=== PATIENT | male | born 1980 | race Hispanic/Latino ===

== ENCOUNTER 2025-08-31 20:40 | Emergency (ER) | payer BC, OTHER ==
--- OUTSIDE RECORDS SUMMARY | 2025-08-31 20:46 | XMS REPORT | Continuity of Care Document ---
Author Name Unknown Address [address] [facility] [address] [place] [address] [facility] Address [address] [facility] [place] [address] Care Team Providers Care Front Window Cashier Name Role Phone PCP, PATIENT DOES NOT HAVE A Primary Care Physic elodia Unavailable JOSEPHINE CONNER Attending Clinician Unavailable Josephine Conner NP Attending Clinician Payers Payer Name Policy Type Policy Number Effective Date Expirati on Date Source CIGNA II [id number] 2022 00:00:00 Allergies, Adverse Reactions, Alerts Allergy Name Allergy Type Status Severity Reaction(s) Onset Date Inactive Date Treating Clinician Comments Source NO KNOWN ALLERGIE S Drug Class Active [facility] Social History Social Habit Start Date Stop Date Quantity Comments Source Sexual orientation U [facility] Sex assigned at 1980 00:00:00 1980 00:00:00 [facility] Smoking Status Start Date Stop Date Source Tobacco smoking consumption unknown [facility] Medications Ordered Medication Name Filled Medication Name Start Date Stop Date Current Medication? Ordering Clinician Indication Dosage Frequency Signature (SIG) Comments Components Source lisinopril 20 mg-hydrochl orothiazide 12.5 mg tablet 5-0 8-06 00:00: 00 Yes mg Reid F Devendra lisinopril 20 mg-hydrochl orothiazide 12.5 mg tablet 5-0 7-07 00:00: 00 Yes mg Reid F Devendra lisinopril 20 mg-hydrochl orothiazide 12.5 mg tablet 5-0 6-07 00:00: 00 Yes mg Reid F Devendra lisinopril 20 mg-hydrochl orothiazide 12.5 mg tablet 2024-0 5-13 00:00: 00 Yes mg Reid Ramsay lisinopril 20 mg-hydrochl orothiazide 12.5 mg tablet 4-09 00:00: 00 Yes mg Reid Ramsay lisinopril 20 mg-hydrochl orothiazide 12.5 mg tablet 2-10 00:00: 00 Yes mg Reid Ramsay albuterol sulfate HFA 90 mcg/actuati on aerosol inhaler 2023-11- 00:00: 00 Yes 12mcg/a ctuatio n Reid Ramsay prednisone 50 mg tablet 2023-11 00:00: 00 Yes 1mg Reid Ramsay doxycycline monohydrate 100 mg capsule 2023-11 00:00: 00 Yes 1mg Reid Ramsay promethazin e-DM 6.25 mg-15 mg/5 mL oral syrup 2023-11 00:00: 00 Yes 5mg/5 mL Reid Ramsay mupirocin 2 % ointment 2023-11- 00:00: 00 Yes [id number] Apply to area(s) 3 (three) times daily as needed for Other (pustular lesion). [facility] cephALEXin 500 mg tablet 2023-11-16 00:00: 00 11-16 05:59 :00 No [id number] 500mg Take 1 tablet by mouth 4 (four) times daily for 7 days. [facility] lisinopril 20 mg-hydrochl orothiazide 12.5 mg tablet 2023-11 1-19 00:00: 00 Yes mg Reid Ramsay lisinopril 20 mg-hydrochl orothiazide 12.5 mg tablet 2023-11 0-16 00:00: 00 Yes mg Reid Ramsay lisinopril 20 mg-hydrochl orothiazide 12.5 mg tablet - 00:00: 00 Yes mg Reid Ramsay lisinopril 20 mg-hydrochl orothiazide 12.5 mg tablet - 00:00: 00 Yes mg Reid Ramsay ergocalcife rol (vitamin D2) 1,250 mcg (50,000 unit) capsule - 00:00: 00 Yes (50,000 unit) Reid Ramsay lisinopril 20 mg-hydrochl orothiazide 12.5 mg tablet 6 00:00: 00 Yes 1mg Reid Ramsay lisinopril 20 mg-hydrochl orothiazide 12.5 mg tablet 03-18 00:00: 00 Yes 1mg Reid Ramsay prednisone 20 mg tablet 03-13 00:00: 00 Yes 1mg Reid Ramsay clarithromy mariana 500 mg tablet 03-13 00:00: 00 Yes 1mg Reid Ramsay Tessalon Perles 100 mg capsule 03-13 00:00: 00 Yes 1mg Reid Ramsay lisinopril 20 mg tablet 12-27 00:00: 00 Yes 1mg Reid Ramsay lisinopril 20 mg-hydrochl orothiazide 12.5 mg tablet 12-27 00:00: 00 Yes 1mg Reid Ramsay Vital Signs Vital Name Observation Time Observation Value Comments S ource Systolic blood pressure 2024-11-08 16:00:00 142 mm[Hg] [place] [facility] Diastolic blood pressure 2024-11-08 16:00:00 98 mm[Hg] [place] [facility] Heart rate 2024-11-08 16:00:00 127 /min [facility] Body temperature 2024-11-08 16:00:00 37.06 Nurys [facility] Oxygen saturation in Arterial blood by Pulse oximetry 2024-11-08 16:00:00 96 /min [facility] Respiratory rate 2024-11-08 14:54:00 18 /min [facility] Body height 2024-11-08 14:54:00 182.9 cm [facility] Body weight 2024-11-08 14:54:00 117.935 kg [facility] BMI 2024-11-08 14:54:00 35.26 kg/m2 [facility] BP Systolic 2025-07-01 09:32:00 132 mm[Hg] Harsh Ramsay BP Diastolic 2025-07-01 09:32:00 83 mm[Hg] Mike Ramsay Weight Measured 2025-07-01 09:32:00 278.00 pounds Reid F Devendra Height Measured 2025-07-01 09:32:00 72.00 inches Reid F Devendra Body Temperature 2025-07-01 09:32:00 98.20 degrees Reid F Devendra Heart Rate 2025-07-01 09:32:00 100.00 /min Step hen F Devendra Respiratory Rate 2025-07-01 09:32:00 18.00 /min Reid F Devendra Heart Rate 2025-03-14 10:32:00 85.00 /min Alejandrina en F Devendra Respiratory Rate 2025-03-14 10:32:00 16.00 /min Reid F Devendra BP Systolic 2025-03-14 10:32:00 143 mm[Hg] Step hen F Devendra BP Diastolic 2025-03-14 10:32:00 104 mm[Hg] Mike phen F Devendra Weight Measured 2025-03-14 10:32:00 272.00 pounds Reid F Devendra Height Measured 2025-03-14 10:32:00 72.00 inches Reid F Devendra Body Temperature 2025-03-14 10:32:00 98.10 degrees Reid F Devendra BP Systolic 2025-03-14 10:15:00 143 mm[Hg] Step hen F Devendra BP Diastolic 2025-03-14 10:15:00 104 mm[Hg] Mike phen F Devendra Weight Measured 2025-03-14 10:15:00 272.00 pounds Reid F Devendra Height Measured 2025-03-14 10:15:00 72.00 inches Reid F Devendra Body Temperature 2025-03-14 10:15:00 98.10 degrees Reid F Devendra Heart Rate 2025-03-14 10:15:00 85.00 /min Alejandrina en F Devendra Respiratory Rate 2025-03-14 10:15:00 16.00 /min Reid F Devendra BP Systolic 2024-11-19 15:01:00 129 mm[Hg] Step hen F Devendra BP Diastolic 2024-11-19 15:01:00 85 mm[Hg] Mike phen F Devendra Weight Measured 2024-11-19 15:01:00 257.40 pounds Reid F Devendra Height Measured 2024-11-19 15:01:00 72.00 inches Reid F Devendra Body Temperature 2024-11-19 15:01:00 98.80 degrees Reid F Devendra Heart Rate 2024-11-19 15:01:00 120.00 /min Step hen F Devendra Respiratory Rate 2024-11-19 15:01:00 16.00 /min Reid F Devendra BP Systolic 2024-10-15 08:38:00 148 mm[Hg] Step hen F Devendra BP Diastolic 2024-10-15 08:38:00 114 mm[Hg] Mike phen F Devendra Weight Measured 2024-10-15 08:38:00 263.80 pounds Reid F Devendra Height Measured 2024-10-15 08:38:00 72.00 inches Reid F Devendra Body Temperature 2024-10-15 08:38:00 98.90 degrees Reid F Devendra Heart Rate 2024-10-15 08:38:00 95.00 /min Alejandrina en F Devendra Respiratory Rate 2024-10-15 08:38:00 16.00 /min Reid F Devendra Respiratory Rate 2024-04-15 11:03:00 Reid F Devendra BP Systolic 2024-04-15 11:03:00 128 mm[Hg] Step hen F Devendra BP Diastolic 2024-04-15 11:03:00 89 mm[Hg] Mike phen F Devendra Weight Measured 2024-04-15 11:03:00 278.60 pounds Reid F Devendra Height Measured 2024-04-15 11:03:00 72.00 inches Reid F Devendra Body Temperature 2024-04-15 11:03:00 97.20 degrees Reid F Devendra Heart Rate 2024-04-15 11:03:00 99.00 /min Alejandrina en F Devendra BP Systolic 2018-03-13 15:29:00 129 mm[Hg] Step hen F Devendra BP Diastolic 2018-03-13 15:29:00 92 mm[Hg] Mike phen F Devendra Weight Measured 2018-03-13 15:29:00 259.40 pounds Reid F Devendra Height Measured 2018-03-13 15:29:00 72.00 inches Reid F Devendra Body Temperature 2018-03-13 15:29:00 98.50 degrees Reid F Devendra Heart Rate 2018-03-13 15:29:00 114.00 /min Step hen F Devendra Respiratory Rate 2018-03-13 15:29:00 16.00 /min Reid Ramsay BP Systolic 2017-12-27 13:42:00 147 mm[Hg] Harsh Ramsay BP Diastolic 2017-12-27 13:42:00 98 mm[Hg] Mike Ramsya Weight Measured 2017-12-27 13:42:00 261.00 pounds Reid Ramsay Height Measured 2017-12-27 13:42:00 72.00 inches Reid Ramsay Body Temperature 2017-12-27 13:42:00 97.90 degrees Reid Ramsay Heart Rate 2017-12-27 13:42:00 105.00 /min Harsh Rmasay Respiratory Rate 2017-12-27 13:42:00 18.00 /min Reid Ramsay Procedures Procedure Date / Time Performed Performing Clinicia n Source INFLUENZA A/B RSV COVID NAAT 2024-11-08 15:27:00 Josephine Conner [facility] Encounters Start Date/Time End Date/Time Encounter Type Admission Type Attending [facility] Care Department Encounter ID Source 2025-08-30 15:56:28 2025-08-30 15:56:[address] [facility] [id number] Reid Ramsay 2025-07-01 09:39:42 2025-07-01 09:39:[address] [facility] [id number] Reid Ramsay 2025-07-01 00:00:00 2025-07-01 00:00:00 Outpatient Visit SFA [id number] Reid Ramsay 2025-03-14 10:10:25 2025-03-14 10:10:[address] [facility] [id number] Reid Ramsay 2025-03-14 00:00:00 2025-03-14 00:00:00 Outpatient Visit SFA [id number] Reid Ramsay 2024-11-19 14:51:33 2024-11-19 14:51:[address] [facility] [id number] Reid Ramsay 2024-11-19 00:00:00 2024-11-19 00:00:00 Outpatient Visit SFA [id number] Reid Ramsay 2024-11-08 08:57:00 2024-11-08 10:48:00 Emergency X [facility] ERT [id number] [facility] 2024-11-08 08:57:00 2024-11-08 10:48:00 Emergency Josephine Conner [facility] [id number] [facility] 2024-10-15 08:22:45 2024-10-15 08:22:[address] [facility] [id number] Reid Ramsay 2024-10-15 00:00:00 2024-10-15 00:00:[address] [facility] [id number] Reid Ramsay 2024-06-19 09:16:11 2024-06-19 09:16:11 Outpatient [facility] [id number] Reid Ramsay 2024-06-19 00:00:00 2024-06-19 00:00:[address] [facility] [id number] Reid Ramsay 2024-04-15 10:57:00 2024-04-15 10:57:[address] [facility] [id number] Reid Ramsay 2024-04-15 00:00:00 2024-04-15 00:00:[address] [facility] [id number] Reid Ramsay Results Test Description Test Time Test Comments Results Result Co mments Source Reid RamsayCOMPREHENSIVE METABOLIC [id number] 00:00:00* Test Item Value Reference Range Interpretation Comme nts GLUCOSE (test code = 2345-7) 90 mg/dL UREA NITROGEN (BUN) (test code = 3094-0) 17 mg/dL CREATININE (test code = 2160-0) 0.80 mg/dL EGFR (test code = 62442-9) 111 mL/min/1.73m2 BUN/CREATININE RATIO (test code = 3097-3) SEE NOTE: (calc) SODIUM (test code = 2951-2) 137 mmol/L POTASSIUM (test code = 2823-3) 4.2 mmol/L CHLORIDE (test code = 2075-0) 101 mmol/L CARBON DIOXIDE (test code = 2027-9) 28 mmol/L CALCIUM (test code = 67273-3) 9.8 mg/dL PROTEIN, TOTAL (test code = 2885-2) 8.0 g/dL ALBUMIN (test code = 1751-7) 4.6 g/dL GLOBULIN (test code = 49228-2) 3.4 g/dL(calc) ALBUMIN/GLOBULIN RATIO (test code = 1759-0) 1.4 (calc) BILIRUBIN, TOTAL (test code = 1975-2) 0.6 mg/dL ALKALINE PHOSPHATASE (test code = 6768-6) 109 U/L AST (test code = 1920-8) 23 U/L ALT (test code = 1742-6) 51 U/L Reid RamsayHEMOGLOBIN [id number] 00:00:00* Test Item Value Reference Range Interpretation Comme nts HEMOGLOBIN A1c (test code = 4548-4) 5.7 % Reid RamsayLIPID [id number] 00:00:00* Test Item Value Reference Range Interpretation Comme nts CHOLESTEROL, TOTAL (test cod e = 2093-3) 179 mg/dL HDL CHOLESTEROL (test code = 2085-9) 44 mg/dL TRIGLYCERIDES (test code = 2571-8) 159 mg/dL LDL-CHOLESTEROL (test code = 36657-7) 108 mg/dL(calc) CHOL/HDLC RATIO (test code = 9830-1) 4.1 (calc) NON HDL CHOLESTEROL (test code = 50618-7) 135 mg/dL(calc) Reid RamsayCHLAMYDIA/N. GONORRHOEAE RNA, [id number] 00:00:00* Test Item Value Reference Range Interpretation Comme nts CHLAMYDIA TRACHOMATIS RNA, T MA, UROGENITAL (test code = 82374-0) NOT DETECTED NEISSERIA GONORRHOEAE RNA, T MA, UROGENITAL (test code = 97517-4) NOT DETECTED Reid RamsayHEPATITIS PANEL, [id number] 00:00:00* Test Item Value Reference Range Interpretation Comme rommel HEPATITIS A AB, TOTAL (test code = 84473-2) REACTIVE HEPATITIS B SURFACE ANTIBODY QL (test code = 59506-0) NON-REACTIVE HEPATITIS B SURFACE ANTIGEN (test code = 5196-1) NON-REACTIVE CONFIRMATION (test code = 7905-3) DNR HEPATITIS B CORE AB TOTAL (t est code = 24497-5) NON-REACTIVE HEPATITIS C ANTIBODY (test c ode = 28109-5) NON-REACTIVE Ried RamsayRPR (MONITOR) W/REFL [id number] 00:00:00* Test Item Value Reference Range Interpretation Comme nts RPR (MONITOR) W/REFL TITER ( test code = 86984-0) NON-REACTIVE Reid RamsayPSA, [id number] 00:00:00* Test Item Value Reference Range Interpretation Comme rommel PSA, TOTAL (test code = 2857-1) 0.59 ng/mL Reid RamsayHIV 1/2 ANTIGEN/ANTIBODY,FOURTH GENERATION [id number] 00:00:00* Test Item Value Reference Range Interpretation Comme rommel HIV AG/AB, 4TH GEN (test cod e = 53228-5) NON-REACTIVE Reid RamsayCOMPREHENSIVE METABOLIC [id number] 00:00:00* Test Item Value Reference Range Interpretation Comme nts GLUCOSE (test code = 2345-7) 90 mg/dL UREA NITROGEN (BUN) (test code = 3094-0) 17 mg/dL CREATININE (test code = 2160-0) 0.80 mg/dL EGFR (test code = 64776-4) 111 mL/min/1.73m2 BUN/CREATININE RATIO (test code = 3097-3) SEE NOTE: (calc) SODIUM (test code = 2951-2) 137 mmol/L POTASSIUM (test code = 2823-3) 4.2 mmol/L CHLORIDE (test code = 2075-0) 101 mmol/L CARBON DIOXIDE (test code = 2027-9) 28 mmol/L CALCIUM (test code = 82497-7) 9.8 mg/dL PROTEIN, TOTAL (test code = 2885-2) 8.0 g/dL ALBUMIN (test code = 1751-7) 4.6 g/dL GLOBULIN (test code = 61704-8) 3.4 g/dL(calc) ALBUMIN/GLOBULIN RATIO (test code = 1759-0) 1.4 (calc) BILIRUBIN, TOTAL (test code = 1975-2) 0.6 mg/dL ALKALINE PHOSPHATASE (test code = 6768-6) 109 U/L AST (test code = 1920-8) 23 U/L ALT (test code = 1742-6) 51 U/L Reid Loja Teressa w/ABR [id number] 00:00:00* Test Item Value Reference Range Interpretation Comme nts ACINETOBACTER BAUMANNII (alice t code = 01532-3) Negative KLEBSIELLA AEROGENES (test c ode = 41420-5) Negative CITROBACTER FREUNDII (test c ode = 12732-2) Negative ENTEROBACTER CLOACAE (test c ode = 64134GFD) Negative ESCHERICHIA COLI (test code = 83395-2) Negative KLEBSIELLA OXYTOCA (test cod e = 66432-7) Negative KLEBSIELLA PNEUMONIAE (test code = 12644-3) Negative MORGANELLA MORGANII (test co de = 46046-3) Negative MYCOPLASMA HOMINIS (test cod e = 65057-3) Negative PROTEUS MIRABILIS (test code = 35977-9) Negative PROTEUS VULGARIS (test code = 870758-0) Negative PROVIDENCIA STUARTII (test c ode = 29932-6) Negative PSEUDOMONAS AERUGINOSA (test code = 36783-1) Negative SERRATIA MARCESCENS (test co de = 24124-0) Negative UREAPLASMA UREALYTICUM (test code = 02676-0) Negative ENTEROCOCCUS FAECALIS (test code = 54597-8) Negative ENTEROCOCCUS FAECIUM (test c ode = 51174-2) Negative STAPHYLOCOCCUS AUREUS (test code = 97535-8) Negative STAPHYLOCOCCUS SAPROPHYTICUS (test code = 25732-9) Negative STREPTOCOCCUS AGALACTIAE (te st code = 57679-6) Negative ELIZABETH ALBICANS (test code = 99912-0) Negative ELIZABETH GLABRATA (test code = no code1) Negative ELIZABETH PARAPSILOSIS (test c ode = no code3) Negative ELIZABETH TROPICALIS (test cod e = No code) Negative Reid RamsayHEMOGLOBIN [id number] 00:00:00* Test Item Value Reference Range Interpretation Comme rommel HEMOGLOBIN A1c (test code = 4548-4) 5.7 % Reid RamsayLIPID [id number] 00:00:00* Test Item Value Reference Range Interpretation Comme rommel CHOLESTEROL, TOTAL (test cod e = 2093-3) 179 mg/dL HDL CHOLESTEROL (test code = 2085-9) 44 mg/dL TRIGLYCERIDES (test code = 2571-8) 159 mg/dL LDL-CHOLESTEROL (test code = 93364-5) 108 mg/dL(calc) CHOL/HDLC RATIO (test code = 9830-1) 4.1 (calc) NON HDL CHOLESTEROL (test code = 20443-3) 135 mg/dL(calc) Reid RamsayCHLAMYDIA/N. GONORRHOEAE RNA, [id number] 00:00:00* Test Item Value Reference Range Interpretation Comme rommel CHLAMYDIA TRACHOMATIS RNA, T MA, UROGENITAL (test code = 95489-3) NOT DETECTED NEISSERIA GONORRHOEAE RNA, T MA, UROGENITAL (test code = 40096-9) NOT DETECTED Reid RamsayHEPATITIS PANEL, [id number] 00:00:00* Test Item Value Reference Range Interpretation Comme rommel HEPATITIS A AB, TOTAL (test code = 74186-3) REACTIVE HEPATITIS B SURFACE ANTIBODY QL (test code = 16163-6) NON-REACTIVE HEPATITIS B SURFACE ANTIGEN (test code = 5196-1) NON-REACTIVE CONFIRMATION (test code = 7905-3) DNR HEPATITIS B CORE AB TOTAL (t est code = 12369-5) NON-REACTIVE HEPATITIS C ANTIBODY (test c ode = 73447-1) NON-REACTIVE Reid RamsayRPR (MONITOR) W/REFL [id number] 00:00:00* Test Item Value Reference Range Interpretation Comme nts RPR (MONITOR) W/REFL TITER ( test code = 88263-0) NON-REACTIVE Reid RamsayPSA, [id number] 00:00:00* Test Item Value Reference Range Interpretation Comme nts PSA, TOTAL (test code = 2857-1) 0.59 ng/mL Reid RamsayHIV 1/2 ANTIGEN/ANTIBODY,FOURTH GENERATION [id number] 00:00:00* Test Item Value Reference Range Interpretation Comme nts HIV AG/AB, 4TH GEN (test cod e = 34355-2) NON-REACTIVE Reid RamsayCOMPREHENSIVE METABOLIC [id number] 04:47:02* Test Item Value Reference Range Interpretation Comme nts GLUCOSE (test code = 7) 88 MG/DL 70-99 BUN (test code = 2207) 15 MG/DL 6-20 CREATININE (test code = 221) 0.81 MG/DL 0.80-1.40 eGFR (2020 CKD-EPI) (test code = 57480) 110 ML/MIN/1.73 >60 CALC BUN/CREAT (test code = 2235) 19 RATIO 6-28 SODIUM (test code = 223) 139 MEQ/L 133-146 POTASSIUM (test code = 2228) 3.8 MEQ/L 3.5-5.4 CHLORIDE (test code = 2215) 101 MEQ/L 95-107 CARBON DIOXIDE (test code = 2206) 24 MEQ/L 19-31 CALCIUM (test code = 2209) 9.9 MG/DL 8.5-10.5 PROTEIN, TOTAL (test code = 2229) 7.9 G/DL 6.1-8.3 ALBUMIN (test code = 2201) 4.8 G/DL 3.5-5.2 CALC GLOBULIN (test code = 2240) 3.1 G/DL 1.9-3.7 CALC A/G RATIO (test code = 2234) 1.5 RATIO 1.0-2.6 BILIRUBIN, TOTAL (test code = 220) 0.8 MG/DL <=1.2 ALKALINE PHOSPHATASE (test code = 2204) 123 U/L 40-118 H AST (test code = 2218) 35 U/L 9-50 ALT (test code = 2219) 67 U/L 5-50 H LIPID [id number] 04:47:02* Test Item Value Reference Range Interpretation Comme nts CHOLESTEROL (test code = 2210) 163 MG/DL <200 TRIGLYCERIDES (test code = 2232) 108 MG/DL <150 HDL CHOLESTEROL (test code = 2220) 37 MG/DL >39 L CALC LDL CHOL (test code = 2237) 106 MG/DL <100 H NOTE: CALCULATED LDL IS BASED ON LUCY-CHAN METHOD WHICHINCLUDES ADJUSTABLE TRIGLYCERIDE:VLDL CHOLESTEROL RATIO.THIS FACTOR VARIES BY MEASURED TRIGLYCERIDE AND NON-HDLCHOLESTEROL CONCENTRATIONS WITH INCREASED CALCULATED LDL SEENIN HIGHER TRIGLYCERIDE OR LOWER NON-HDL SPECIMENS. FOR MOREINFORMATION, SEE CLIENT ANNOUNCEMENT AT [email or web address] RISK RATIO LDL/HDL (test code = 2238) 2.86 RATIO <3.55 [id number] 04:19:36* Test Item Value Reference Range Interpretation Comme nts TESTOSTERONE (test code = 2830) 430 NG/DL 300-890 PSA, [id number] 04:19:29* Test Item Value Reference Range Interpretation Comme nts PSA, TOTAL (test code = 2606) 0.61 NG/ML <=4.00 NOTE: Methodolog y is Farida Stacia Electrochemiluminescence Immunoassay traceable to WHO reference standard 96/760. FSH + LH [id number] 04:19:29* Test Item Value Reference Range Interpretation Comme nts FOLLICLE STIM HORMONE (test code = 2700) 3.8 IU/L 1.5-12.4 LUTEINIZING HORMONE (test code = 2776) 7.6 IU/L 1.2-8.6 UNLESS OTHERW ISE INDICATED, ALL TESTING PERFORMED AT [facility] [address] [place] [address] MOTORCYCLE RIDING INSTRUCTOR: VIANEY HERNANDEZ M.D. CLIA NUMBER [id number] [facility] [place]. [id number] HEMOGLOBIN [id number] 02:42:12* Test Item Value Reference Range Interpretation Comme nts HEMOGLOBIN A1c (test code = 84731) 5.5 % 4.2-5.6 COMPREHENSIVE METABOLIC [id number] 00:00:00* Test Item Value Reference Range Interpretation Comme nts GLUCOSE (test code = 2217) 88 MG/DL BUN (test code = 2208) 15 MG/DL CREATININE (test code = 2214) 0.81 MG/DL eGFR (2020 CKD-EPI) (test code = 15492) 110 ML/MIN/1.73 CALC BUN/CREAT (test code = 2235) 19 RATIO SODIUM (test code = 2231) 139 MEQ/L POTASSIUM (test code = 2228) 3.8 MEQ/L CHLORIDE (test code = 2215) 101 MEQ/L CARBON DIOXIDE (test code = 2206) 24 MEQ/L CALCIUM (test code = 2209) 9.9 MG/DL PROTEIN, TOTAL (test code = 2229) 7.9 G/DL ALBUMIN (test code = 2201) 4.8 G/DL CALC GLOBULIN (test code = 2240) 3.1 G/DL CALC A/G RATIO (test code = 2234) 1.5 RATIO BILIRUBIN, TOTAL (test code = 2207) 0.8 MG/DL ALKALINE PHOSPHATASE (test code = 2204) 123 U/L AST (test code = 2218) 35 U/L ALT (test code = 2219) 67 U/L Reid RamsayLIPID [id number] 00:00:00* Test Item Value Reference Range Interpretation Comme nts CHOLESTEROL (test code = 2210) 163 MG/DL TRIGLYCERIDES (test code = 2232) 108 MG/DL HDL CHOLESTEROL (test code = 2220) 37 MG/DL CALC LDL CHOL (test code = 2237) 106 MG/DL RISK RATIO LDL/HDL (test cod e = 2238) 2.86 RATIO Reid RamsayHEMOGLOBIN [id number] 00:00:00* Test Item Value Reference Range Interpretation Comme rommel HEMOGLOBIN A1c (test code = 80792) 5.5 % Reid [id number] 00:00:00* Test Item Value Reference Range Interpretation Comme nts TESTOSTERONE (test code = 2830) 430 NG/DL Reid RamsayPSA, [id number] 00:00:00* Test Item Value Reference Range Interpretation Comme nts PSA, TOTAL (test code = 2606) 0.61 NG/ML Reid RamsayFSH + LH [id number] 00:00:00* Test Item Value Reference Range Interpretation Comme nts FOLLICLE STIM HORMONE (test code = 7880) 3.8 IU/L LUTEINIZING HORMONE (test co de = 0090) 7.6 IU/L Reid RamsayCOMPREHENSIVE METABOLIC [id number] 00:00:00* Test Item Value Reference Range Interpretation Comme nts GLUCOSE (test code = 2217) 88 MG/DL BUN (test code = 2208) 15 MG/DL CREATININE (test code = 2214) 0.81 MG/DL eGFR (2020 CKD-EPI) (test code = 92540) 110 ML/MIN/1.73 CALC BUN/CREAT (test code = 2235) 19 RATIO SODIUM (test code = 2231) 139 MEQ/L POTASSIUM (test code = 2228) 3.8 MEQ/L CHLORIDE (test code = 2215) 101 MEQ/L CARBON DIOXIDE (test code = 2206) 24 MEQ/L CALCIUM (test code = 2209) 9.9 MG/DL PROTEIN, TOTAL (test code = 2229) 7.9 G/DL ALBUMIN (test code = 2201) 4.8 G/DL CALC GLOBULIN (test code = 2240) 3.1 G/DL CALC A/G RATIO (test code = 2234) 1.5 RATIO BILIRUBIN, TOTAL (test code = 2207) 0.8 MG/DL ALKALINE PHOSPHATASE (test code = 2204) 123 U/L AST (test code = 2218) 35 U/L ALT (test code = 2219) 67 U/L Reid RamsayLIPID [id number] 00:00:00* Test Item Value Reference Range Interpretation Comme nts CHOLESTEROL (test code = 2210) 163 MG/DL TRIGLYCERIDES (test code = 2232) 108 MG/DL HDL CHOLESTEROL (test code = 2220) 37 MG/DL CALC LDL CHOL (test code = 2237) 106 MG/DL RISK RATIO LDL/HDL (test cod e = 2238) 2.86 RATIO Reid RamsayHEMOGLOBIN [id number] 00:00:00* Test Item Value Reference Range Interpretation Comme nts HEMOGLOBIN A1c (test code = 66984) 5.5 % Reid [id number] 00:00:00* Test Item Value Reference Range Interpretation Comme nts TESTOSTERONE (test code = 2830) 430 NG/DL Reid RamsayPSA, [id number] 00:00:00* Test Item Value Reference Range Interpretation Comme nts PSA, TOTAL (test code = 2606) 0.61 NG/ML Reid RamsayFSH + LH [id number] 00:00:00* Test Item Value Reference Range Interpretation Comme nts FOLLICLE STIM HORMONE (test code = 2700) 3.8 IU/L LUTEINIZING HORMONE (test co de = 2776) 7.6 IU/L Reid RamsayCOMPREHENSIVE METABOLIC [id number] 00:00:00* Test Item Value Reference Range Interpretation Comme nts GLUCOSE (test code = 2217) 88 MG/DL BUN (test code = 2208) 15 MG/DL CREATININE (test code = 2214) 0.81 MG/DL eGFR (2020 CKD-EPI) (test code = 71957) 110 ML/MIN/1.73 CALC BUN/CREAT (test code = 2235) 19 RATIO SODIUM (test code = 2231) 139 MEQ/L POTASSIUM (test code = 2228) 3.8 MEQ/L CHLORIDE (test code = 2215) 101 MEQ/L CARBON DIOXIDE (test code = 2206) 24 MEQ/L CALCIUM (test code = 2209) 9.9 MG/DL PROTEIN, TOTAL (test code = 2229) 7.9 G/DL ALBUMIN (test code = 2201) 4.8 G/DL CALC GLOBULIN (test code = 2240) 3.1 G/DL CALC A/G RATIO (test code = 2234) 1.5 RATIO BILIRUBIN, TOTAL (test code = 2207) 0.8 MG/DL ALKALINE PHOSPHATASE (test code = 2204) 123 U/L AST (test code = 2218) 35 U/L ALT (test code = 2219) 67 U/L Reid RamsayLIPID [id number] 00:00:00* Test Item Value Reference Range Interpretation Comme nts CHOLESTEROL (test code = 2210) 163 MG/DL TRIGLYCERIDES (test code = 2232) 108 MG/DL HDL CHOLESTEROL (test code = 2220) 37 MG/DL CALC LDL CHOL (test code = 2237) 106 MG/DL RISK RATIO LDL/HDL (test cod e = 2238) 2.86 RATIO Reid RamsayHEMOGLOBIN [id number] 00:00:00* Test Item Value Reference Range Interpretation Comme [facility] HEMOGLOBIN A1c (test code = 59389) 5.5 % Reid [id number] 00:00:00* Test Item Value Reference Range Interpretation Comme nts TESTOSTERONE (test code = 2830) 430 NG/DL Reid RamsayPSA, [id number] 00:00:00* Test Item Value Reference Range Interpretation Comme nts PSA, TOTAL (test code = 2606) 0.61 NG/ML Reid RamsayFSH + LH [id number] 00:00:00* Test Item Value Reference Range Interpretation Comme nts FOLLICLE STIM HORMONE (test code = 2700) 3.8 IU/L LUTEINIZING HORMONE (test co de = 2776) 7.6 IU/L Reid RamsayCOMPREHENSIVE METABOLIC [id number] 00:00:00* Test Item Value Reference Range Interpretation Comme nts GLUCOSE (test code = 2217) 88 MG/DL BUN (test code = 2208) 15 MG/DL CREATININE (test code = 2214) 0.81 MG/DL eGFR (2020 CKD-EPI) (test code = 31131) 110 ML/MIN/1.73 CALC BUN/CREAT (test code = 2235) 19 RATIO SODIUM (test code = 2231) 139 MEQ/L POTASSIUM (test code = 2228) 3.8 MEQ/L CHLORIDE (test code = 2215) 101 MEQ/L CARBON DIOXIDE (test code = 2206) 24 MEQ/L CALCIUM (test code = 2209) 9.9 MG/DL PROTEIN, TOTAL (test code = 2229) 7.9 G/DL ALBUMIN (test code = 2201) 4.8 G/DL CALC GLOBULIN (test code = 2240) 3.1 G/DL CALC A/G RATIO (test code = 2234) 1.5 RATIO BILIRUBIN, TOTAL (test code = 2207) 0.8 MG/DL ALKALINE PHOSPHATASE (test code = 2204) 123 U/L AST (test code = 2218) 35 U/L ALT (test code = 2219) 67 U/L Reid RamsayLIPID [id number] 00:00:00* Test Item Value Reference Range Interpretation Comme nts CHOLESTEROL (test code = 2210) 163 MG/DL TRIGLYCERIDES (test code = 2232) 108 MG/DL HDL CHOLESTEROL (test code = 2220) 37 MG/DL CALC LDL CHOL (test code = 2237) 106 MG/DL RISK RATIO LDL/HDL (test cod e = 2238) 2.86 RATIO Reid RamsayHEMOGLOBIN [id number] 00:00:00* Test Item Value Reference Range Interpretation Comme nts HEMOGLOBIN A1c (test code = 55434) 5.5 % Reid [id number] 00:00:00* Test Item Value Reference Range Interpretation Comme nts TESTOSTERONE (test code = 2830) 430 NG/DL Reid RamsayPSA, [id number] 00:00:00* Test Item Value Reference Range Interpretation Comme rommel PSA, TOTAL (test code = 2606) 0.61 NG/ML Reid RamsayFSH + LH [id number] 00:00:00* Test Item Value Reference Range Interpretation Comme rommel FOLLICLE STIM HORMONE (test code = 2700) 3.8 IU/L LUTEINIZING HORMONE (test co de = 2776) 7.6 IU/L Reid RamsayHEMOGLOBIN [id number] 03:18:02* Test Item Value Reference Range Interpretation Comme rommel HEMOGLOBIN A1c (test code = 52741) 6.1 % 4.2-5.6 H [employer] GUIDELINES FOR HGB A1C: PREDIABETES/INCREASED RISK . . . . . . . 5.7-6.4% DIAGNOSIS OF DIABETES . . . . . . . . . >=6.5% WITH CONFIRMATION OR APPROPRIATE SYMPTOMS NOTE: ASSAY MAY BE AFFECTED BY HEMOGLOBINOPATHIES (SICKLE CELL ANEMIA, S-C DISEASE, OTHERS) OR ARTIFICIALLY LOWERED BY DECREASED RED CELL SURVIVAL (HEMOLYTIC ANEMIAS, BLOOD LOSS, ETC.). CONSIDER ALTERNATE TESTING OR LABORATORY CONSULTATION. COMPREHENSIVE METABOLIC [id number] 02:40:23* Test Item Value Reference Range Interpretation Comme nts GLUCOSE (test code = 2217) 101 MG/DL 70-99 H BUN (test code = 2208) 15 MG/DL 6-20 CREATININE (test code = 2214) 0.85 MG/DL 0.80-1.40 eGFR (2020 CKD-EPI) (test code = 79325) 109 ML/MIN/1.73 >60 CALC BUN/CREAT (test code = 2235) 18 RATIO 6-28 SODIUM (test code = 2231) 139 MEQ/L 133-146 POTASSIUM (test code = 2228) 4.0 MEQ/L 3.5-5.4 CHLORIDE (test code = 2215) 102 MEQ/L 95-107 CARBON DIOXIDE (test code = 6) 22 MEQ/L 19-31 CALCIUM (test code = 2208) 9.8 MG/DL 8.5-10.5 PROTEIN, TOTAL (test code = 2229) 7.7 G/DL 6.1-8.3 ALBUMIN (test code = 2201) 4.9 G/DL 3.5-5.2 CALC GLOBULIN (test code = 2240) 2.8 G/DL 1.9-3.7 CALC A/G RATIO (test code = 2234) 1.8 RATIO 1.0-2.6 BILIRUBIN, TOTAL (test code = 2206) 0.7 MG/DL <=1.2 ALKALINE PHOSPHATASE (test code = 2203) 115 U/L 40-119 AST (test code = 221) 48 U/L 9-50 ALT (test code = 221) 75 U/L 5-50 H LIPID [id number] 02:40:23* Test Item Value Reference Range Interpretation Comme nts CHOLESTEROL (test code = 2210) 180 MG/DL <200 TRIGLYCERIDES (test code = 2232) 157 MG/DL <150 H HDL CHOLESTEROL (test code = 2220) 40 MG/DL >39 CALC LDL CHOL (test code = 2236) 113 MG/DL <100 H NOTE: CALCULATED LDL IS BASED ON LUCY-CHAN METHOD WHICHINCLUDES ADJUSTABLE TRIGLYCERIDE:VLDL CHOLESTEROL RATIO.THIS FACTOR VARIES BY MEASURED TRIGLYCERIDE AND NON-HDLCHOLESTEROL CONCENTRATIONS WITH INCREASED CALCULATED LDL SEENIN HIGHER TRIGLYCERIDE OR LOWER NON-HDL SPECIMENS. FOR MOREINFORMATION, SEE CLIENT ANNOUNCEMENT AT [email or web address] RISK RATIO LDL/HDL (test code = 2238) 2.83 RATIO <3.55 UNLESS OTHERW ISE INDICATED, ALL TESTING PERFORMED AT [facility] [address] [place] [id number] [employer]OR[employer] RIDING INSTRUCTOR: VIANEY HERNANDEZ M.D. CLIA NUMBER [id number] [facility] [place]. [id number] HEMOGLOBIN [id number] 00:00:00* Test Item Value Reference Range Interpretation Comme nts HEMOGLOBIN A1c (test code = 53100) 6.1 % Reid aRmsayCOMPREHENSIVE METABOLIC [id number] 00:00:00* Test Item Value Reference Range Interpretation Comme nts GLUCOSE (test code = 2217) 101 MG/DL BUN (test code = 2208) 15 MG/DL CREATININE (test code = 2214) 0.85 MG/DL eGFR (2020 CKD-EPI) (test code = 37660) 109 ML/MIN/1.73 CALC BUN/CREAT (test code = 2235) 18 RATIO SODIUM (test code = 2231) 139 MEQ/L POTASSIUM (test code = 2228) 4.0 MEQ/L CHLORIDE (test code = 2215) 102 MEQ/L CARBON DIOXIDE (test code = 2206) 22 MEQ/L CALCIUM (test code = 2209) 9.8 MG/DL PROTEIN, TOTAL (test code = 2229) 7.7 G/DL ALBUMIN (test code = 2201) 4.9 G/DL CALC GLOBULIN (test code = 2240) 2.8 G/DL CALC A/G RATIO (test code = 2234) 1.8 RATIO BILIRUBIN, TOTAL (test code = 2207) 0.7 MG/DL ALKALINE PHOSPHATASE (test code = 2204) 115 U/L AST (test code = 2218) 48 U/L ALT (test code = 2219) 75 U/L Reid Loja AustinLIPID [id number] 00:00:00* Test Item Value Reference Range Interpretation Comme nts CHOLESTEROL (test code = 2210) 180 MG/DL TRIGLYCERIDES (test code = 2232) 157 MG/DL HDL CHOLESTEROL (test code = 2220) 40 MG/DL CALC LDL CHOL (test code = 2237) 113 MG/DL RISK RATIO LDL/HDL (test cod e = 2238) 2.83 RATIO Reid RamsayHEMOGLOBIN [id number] 00:00:00* Test Item Value Reference Range Interpretation Comme nts HEMOGLOBIN A1c (test code = 17387) 6.1 % Reid Loja DevendraCOMPREHENSIVE METABOLIC [id number] 00:00:00* Test Item Value Reference Range Interpretation Comme nts GLUCOSE (test code = 2217) 101 MG/DL BUN (test code = 2208) 15 MG/DL CREATININE (test code = 2214) 0.85 MG/DL eGFR (2020 CKD-EPI) (test code = 32177) 109 ML/MIN/1.73 CALC BUN/CREAT (test code = 2235) 18 RATIO SODIUM (test code = 2231) 139 MEQ/L POTASSIUM (test code = 2228) 4.0 MEQ/L CHLORIDE (test code = 2215) 102 MEQ/L CARBON DIOXIDE (test code = 2206) 22 MEQ/L CALCIUM (test code = 2209) 9.8 MG/DL PROTEIN, TOTAL (test code = 2229) 7.7 G/DL ALBUMIN (test code = 2201) 4.9 G/DL CALC GLOBULIN (test code = 2240) 2.8 G/DL CALC A/G RATIO (test code = 2234) 1.8 RATIO BILIRUBIN, TOTAL (test code = 2207) 0.7 MG/DL ALKALINE PHOSPHATASE (test code = 2204) 115 U/L AST (test code = 2218) 48 U/L ALT (test code = 2219) 75 U/L Reid RamsayLIPID [id number] 00:00:00* Test Item Value Reference Range Interpretation Comme nts CHOLESTEROL (test code = 2210) 180 MG/DL TRIGLYCERIDES (test code = 2232) 157 MG/DL HDL CHOLESTEROL (test code = 2220) 40 MG/DL CALC LDL CHOL (test code = 2237) 113 MG/DL RISK RATIO LDL/HDL (test cod e = 2238) 2.83 RATIO Reid RamsayHEMOGLOBIN [id number] 00:00:00* Test Item Value Reference Range Interpretation Comme nts HEMOGLOBIN A1c (test code = 33595) 6.1 % Reid RamsayCOMPREHENSIVE METABOLIC [id number] 00:00:00* Test Item Value Reference Range Interpretation Comme nts GLUCOSE (test code = 2217) 101 MG/DL BUN (test code = 2208) 15 MG/DL CREATININE (test code = 2214) 0.85 MG/DL eGFR (2020 CKD-EPI) (test code = 58373) 109 ML/MIN/1.73 CALC BUN/CREAT (test code = 2235) 18 RATIO SODIUM (test code = 2231) 139 MEQ/L POTASSIUM (test code = 2228) 4.0 MEQ/L CHLORIDE (test code = 2215) 102 MEQ/L CARBON DIOXIDE (test code = 2206) 22 MEQ/L CALCIUM (test code = 2209) 9.8 MG/DL PROTEIN, TOTAL (test code = 2229) 7.7 G/DL ALBUMIN (test code = 2201) 4.9 G/DL CALC GLOBULIN (test code = 2240) 2.8 G/DL CALC A/G RATIO (test code = 2234) 1.8 RATIO BILIRUBIN, TOTAL (test code = 2207) 0.7 MG/DL ALKALINE PHOSPHATASE (test code = 2204) 115 U/L AST (test code = 2218) 48 U/L ALT (test code = 2219) 75 U/L Reid RamsayLIPID [id number] 00:00:00* Test Item Value Reference Range Interpretation Comme nts CHOLESTEROL (test code = 2210) 180 MG/DL TRIGLYCERIDES (test code = 2232) 157 MG/DL HDL CHOLESTEROL (test code = 2220) 40 MG/DL CALC LDL CHOL (test code = 2237) 113 MG/DL RISK RATIO LDL/HDL (test cod e = 2238) 2.83 RATIO Reid RamsayHEMOGLOBIN [id number] 00:00:00* Test Item Value Reference Range Interpretation Comme rommel HEMOGLOBIN A1c (test code = 98078) 6.1 % Reid RamsayCOMPREHENSIVE METABOLIC [id number] 00:00:00* Test Item Value Reference Range Interpretation Comme nts GLUCOSE (test code = 2217) 101 MG/DL BUN (test code = 2208) 15 MG/DL CREATININE (test code = 2214) 0.85 MG/DL eGFR (2020 CKD-EPI) (test code = 86666) 109 ML/MIN/1.73 CALC BUN/CREAT (test code = 2235) 18 RATIO SODIUM (test code = 2231) 139 MEQ/L POTASSIUM (test code = 2228) 4.0 MEQ/L CHLORIDE (test code = 2215) 102 MEQ/L CARBON DIOXIDE (test code = 2206) 22 MEQ/L CALCIUM (test code = 2209) 9.8 MG/DL PROTEIN, TOTAL (test code = 2229) 7.7 G/DL ALBUMIN (test code = 2201) 4.9 G/DL CALC GLOBULIN (test code = 2240) 2.8 G/DL CALC A/G RATIO (test code = 2234) 1.8 RATIO BILIRUBIN, TOTAL (test code = 2207) 0.7 MG/DL ALKALINE PHOSPHATASE (test code = 2204) 115 U/L AST (test code = 2218) 48 U/L ALT (test code = 2219) 75 U/L Reid Loja AustinLIPID [id number] 00:00:00* Test Item Value Reference Range Interpretation Comme nts CHOLESTEROL (test code = 2210) 180 MG/DL TRIGLYCERIDES (test code = 2232) 157 MG/DL HDL CHOLESTEROL (test code = 2220) 40 MG/DL CALC LDL CHOL (test code = 2237) 113 MG/DL RISK RATIO LDL/HDL (test cod e = 2238) 2.83 RATIO Reid RamsayHEMOGLOBIN [id number] 00:00:00* Test Item Value Reference Range Interpretation Comme nts HEMOGLOBIN A1c (test code = 95539) 6.1 % Reid RamsayCOMPREHENSIVE METABOLIC [id number] 00:00:00* Test Item Value Reference Range Interpretation Comme nts GLUCOSE (test code = 2217) 101 MG/DL BUN (test code = 2208) 15 MG/DL CREATININE (test code = 2214) 0.85 MG/DL eGFR (2020 CKD-EPI) (test code = 62837) 109 ML/MIN/1.73 CALC BUN/CREAT (test code = 2235) 18 RATIO SODIUM (test code = 2231) 139 MEQ/L POTASSIUM (test code = 2228) 4.0 MEQ/L CHLORIDE (test code = 2215) 102 MEQ/L CARBON DIOXIDE (test code = 2206) 22 MEQ/L CALCIUM (test code = 2209) 9.8 MG/DL PROTEIN, TOTAL (test code = 2229) 7.7 G/DL ALBUMIN (test code = 2201) 4.9 G/DL CALC GLOBULIN (test code = 2240) 2.8 G/DL CALC A/G RATIO (test code = 2234) 1.8 RATIO BILIRUBIN, TOTAL (test code = 2207) 0.7 MG/DL ALKALINE PHOSPHATASE (test code = 2204) 115 U/L AST (test code = 2218) 48 U/L ALT (test code = 2219) 75 U/L Reid RamsayLIPID [id number] 00:00:00* Test Item Value Reference Range Interpretation Comme nts CHOLESTEROL (test code = 2210) 180 MG/DL TRIGLYCERIDES (test code = 2232) 157 MG/DL HDL CHOLESTEROL (test code = 2220) 40 MG/DL CALC LDL CHOL (test code = 2237) 113 MG/DL RISK RATIO LDL/HDL (test cod e = 2238) 2.83 RATIO Reid RamsayHEMOGLOBIN [id number] 00:00:00* Test Item Value Reference Range Interpretation Comme nts HEMOGLOBIN A1c (test code = 02318) 6.1 % Reid RamsayCOMPREHENSIVE METABOLIC [id number] 00:00:00* Test Item Value Reference Range Interpretation Comme nts GLUCOSE (test code = 2217) 101 MG/DL BUN (test code = 2208) 15 MG/DL CREATININE (test code = 2214) 0.85 MG/DL eGFR (2020 CKD-EPI) (test code = 91782) 109 ML/MIN/1.73 CALC BUN/CREAT (test code = 2235) 18 RATIO SODIUM (test code = 2231) 139 MEQ/L POTASSIUM (test code = 2228) 4.0 MEQ/L CHLORIDE (test code = 2215) 102 MEQ/L CARBON DIOXIDE (test code = 2206) 22 MEQ/L CALCIUM (test code = 2209) 9.8 MG/DL PROTEIN, TOTAL (test code = 2229) 7.7 G/DL ALBUMIN (test code = 2201) 4.9 G/DL CALC GLOBULIN (test code = 2240) 2.8 G/DL CALC A/G RATIO (test code = 2234) 1.8 RATIO BILIRUBIN, TOTAL (test code = 2207) 0.7 MG/DL ALKALINE PHOSPHATASE (test code = 2204) 115 U/L AST (test code = 2218) 48 U/L ALT (test code = 2219) 75 U/L Reid RamsayLIPID [id number] 00:00:00* Test Item Value Reference Range Interpretation Comme nts CHOLESTEROL (test code = 2210) 180 MG/DL TRIGLYCERIDES (test code = 2232) 157 MG/DL HDL CHOLESTEROL (test code = 2220) 40 MG/DL CALC LDL CHOL (test code = 2237) 113 MG/DL RISK RATIO LDL/HDL (test cod e = 2238) 2.83 RATIO Reid F Devendra Notes Date/Time Note Provider Source Reid Rey [facility]2025-04-21 00:00:00 Reid Rey [facility]2024-12-27 00:00:00 [facility]2024-12-16 08:53:26 Patient states "I got two things, I feel virgil I have the flu or something. All my bones hurt, I can't barely move orwalk. I have this cyst right between my thigh and my testicle." [facility]2024-11-22 00:00:00 Reid Edita [facility]2024-07-27 00:00:00 Reid Edita [facility]2024-05-23 00:00:00 [facility]
[2025-08-31] MEDS ORDERED: CLINDAMYCIN 600MG/D5W 50 ML IV ONE (22:13)
[2025-08-31] MEDS ORDERED: HYDROMORPHONE HCL 0.5 MG/0.5 ML INJ ONE ×2 (22:13→23:27)
[2025-08-31] MEDS ORDERED: ONDANSETRON 4 MG/2 ML VIAL ONE (22:13)
[2025-08-31 22:22] LABS: Absolute Lymphocytes (CBC) 2.5 K/uL (0.7-4.9); Hematocrit 48.8 % (39.6-49.0); Hemoglobin 17.2 g/dL (13.6-17.9); MCH 32.1 pg (27.0-35.0); MCHC 35.3 g/dL (32.0-36.0); MCV 90.9 fL (80-100); MPV 8.6 fL (7.6-11.3); Nucleated RBC Absolute Count 0.1 (0-0); Nucleated Red Blood Cells % 0.5 % (0-0); RBC Red Blood Cell Count 5.37 M/uL (4.33-5.43); White Blood Count 12.10 thou/uL (4.3-10.9)
[2025-08-31 22:35] LABS: Anion Gap 8.0 mEq/L (5.0-15.0); BUN Blood Urea Nitrogen 16.0 mg/dL (7-18); Glucose Level 120.0 mg/dL (74-106); Potassium 3.0 mEq/L (3.5-5.1)
--- NOTE | 2025-08-31 22:44 | RAD REPORT ---
EXAMINATION: Maxillofacial W/Cont CLINICAL INDICATION: Male, 45 years old. FACIAL PAIN TECHNIQUE: Axial images were obtained through the facial bones and orbits with intravenous contrast. Sagittal and coronal reconstructions were created from the data. One or more of the following dose reduction techniques were used: Automated exposure control, adjustment of the mA and/or kV according to patient size, and/or iterative reconstruction. Unless otherwise specified, incidental findings do not require dedicated imaging follow-up. [id number]. COMPARISON: No prior exams FINDINGS: SOFT TISSUE: Right cheek swelling. Soft tissue swelling also present about the nose, most pronounced on the right side with 9 x 15 x 10 mm fluid collection along the right nare. BONES: No evidence of fracture, dislocation, or aggressive osseous lesions. No lesion of the visuali zed skull base or calvarium. ORBITS: The globes are intact. No intraorbital hemorrhage or mass. SINUSES: The paranasal sinuses and tympanomastoid cavities are predominantly clear. BRAIN: No acute abnormalities in the visualized intracranial structures. IMPRESSION: Small superficial abscess associated with the right nare. Surrounding cellulitis present.
[2025-08-31] MEDS ORDERED: LIDOCAINE 2% W/EPI 1:200,000 MPF 20 ML VIAL IM ONE (23:27)
--- NOTE | 2025-08-31 23:55 | EDPHYS ---
Physician Documentation [facility] Name: Andrea Callejas III Age: 45 yrs Sex: Male : 1980 Arrival Date: 08/31/2025 Time: 20:40 Bed 2 Private MD: ED Physician Rg Salazar HPI: 08/31 23:12 This 45 yrs old Male presents to ER via Ambulatory with complaints of Facial tt7 Swelling. 23:12 Patient reports 4 days of right sided nose and facial pain and swelling. He went to see tt7 his primary care physician 2 days ago and was prescribed amoxicillin. He reports that the pain and swelling is worsened despite taking this antibiotic. He denies fever, nausea, vision changes, shortness of breath. He does report that he popped a pimple on his nose about 5 days ago prior to the symptoms starting. Historical: - Allergies: 21:18 No Known Allergies; dd2 - Home Meds: 21:18 Lisinopril Oral [Active]; dd2 - PMHx: 21:18 Hypertensive disorder; dd2 - PSHx: 21:18 None; dd2 - Immunization history:: Adult Immunizations up to date. - Infectious Disease History:: Denies. - Social history:: Smoking status: Patient/guardian denies using tobacco. ROS: 23:15 Constitutional: negative for fever. Cardiovascular: negative for chest pain. tt7 Respiratory: negative for shortness of breath. Abdomen/GI: negative for abdominal pain, nausea, vomiting, diarrhea. MS/Extremity: negative for injury and deformity. Skin: negative for rash. Neuro: negative for focal weakness. Exam: 23:16 Constitutional: vital signs reviewed, well appearing. Head/Face: normocephalic, tt7 atraumatic, moderate amount of swelling to the right nasolabial fold with tenderness to palpation, mild amount of infraorbital tenderness and swelling on the right side. Eyes: no conjunctival injection, anicteric sclerae, PERRL, EOMI. ENT: mucus membranes moist. Neck: trachea midline, no JVD, no meningismus. Cardiovascular: regular rate and rhythm, no lower extremity edema. Respiratory: normal respiratory effort, no accessory muscle use Abdomen/GI: Nondistended Back: normal ROM. Skin: Warm, dry, intact MS/ Extremity: normal ROM of extremities, no gross deformities. Neuro: alert and oriented with appropriate mental status, normal speech, follows commands, no focal neurologic deficits. Psych: appropriate mood and affect. Vital Signs: 21:15 BP 156 / 110; Pulse 102; Resp 18; Temp 98.2; Pulse Ox 100% on R/A; Weight 122.47 kg; dd2 Height 6 ft. 0 in. ; Pain 10/10; 22:38 BP 145 / 105; Pulse 99; Resp 18; Pulse Ox 100% on R/A; kb4 23:19 BP 147 / 95; Pulse 95; Resp 18; Pulse Ox 100% on R/A; kb4 09/01 00:16 BP 142 / 103; Pulse 93; Resp 18; Pulse Ox 98% on R/A; kb4 08/31 21:15 Body Mass Index 36.62 (122.47 kg, 182.88 cm) dd2 08/31 21:15 Pain Scale: Adult dd2 Procedures: 00:00 I \T\ D: Incision and drainage was performed for an abscess of the right nose Prepped tt7 with Betadine, Anesthetized with ml's 2% Lidocaine with epinephrine. 3 ml's 2% Lidocaine with epinephrine. Incised with 18-gauge needle. Drained small amount purulent fluid. bloody fluid. Dressing: None the patient tolerated the procedure well. MDM: 08/31 21:18 Medical Screening Exam initiated tt7 23:57 Differential diagnosis: Dacryocystitis, facial abscess, cellulitis. Data reviewed: tt7 vital signs, nurses notes, lab test result(s), radiologic studies. ED course: Well-appearing patient with stable vital signs with concern for potential facial abscess, basic laboratory studies ordered and CT imaging of the face with contrast, laboratory studies show very mild leukocytosis but patient not having systemic infectious symptoms, was treated with IV dose of clindamycin and parenteral opioid, CT imaging shows superficial cutaneous abscess in the right nasolabial fold, I infiltrated lidocaine with epinephrine and used an 18-gauge needle to perform a tract for drainage of the abscess, abscess was drained, I provided the patient with wound care instructions, the patient was discharged with course of oral clindamycin, strict return precautions discussed, after completion of the patient's emergency department evaluation, I do not suspect a life-threatening or disabling process. Patient is medically stable and not in need of emergent medical intervention. I had a detailed discussion with the patient regarding the historical points, exam findings, emergency department evaluation, diagnostic results, and the discharge diagnosis. I instructed the patient on outpatient management of their condition. I discussed the need for outpatient follow-up with a primary care physician. I informed the patient on return precautions, including the need to return to the ED if symptoms do not improve, worsen, or if there are any questions or concerns that arise at home. The patient was discharged in stable condition. 08/31 21:19 Order name: CBC with Diff; Complete Time: 22:32 tt7 08/31 21:19 Order name: BMP; Complete Time: 22:36 tt7 08/31 21:19 Order name: CT Maxillofacial W/cont; Complete Time: 22:50 tt7 Administered Medications: 00:41 Drug: Lidocaine-Epinephrine Infiltration -2 % (1:100,000) 10 ml Infiltration once; to al5 bedside {Note: given by provider.} Route: Infiltration; 09/01 00:12 Follow up: Response: No adverse reaction al5 08/31 22:17 Drug: HYDROmorphone IVP 0.5 mg IVP once Route: IVP; Site: right antecubital; kb4 22:39 Follow up: Response: No adverse reaction kb4 22:17 Drug: Ondansetron IVP 4 mg IVP once; over 2 minutes Route: IVP; Site: right antecubital;kb4 22:39 Follow up: Response: No adverse reaction kb4 22:39 Drug: Clindamycin IVPB 600 mg IVPB once over 30 mins; (mix in 50 mL) Route: IVPB; kb4 Infused Over: 30 mins; Site: right antecubital; 09/01 00:13 Follow up: Response: No adverse reaction; IV Status: Completed infusion; IV Intake: [id number] 08/31 23:40 Drug: HYDROmorphone IVP 0.5 mg IVP once Route: IVP; Site: right antecubital; al5 09/01 00:12 Follow up: Response: No adverse reaction; Pain is decreased al5 Disposition: 00:01 Co-signature as Attending Physician, Rg Salazar DO. tt7 Disposition Summary: 08/31/25 23:54 Discharge Ordered Notes: Location: Home tt7 Problem: new tt7 Symptoms: have improved tt7 Condition: Stable tt7 Diagnosis - Cutaneous abscess of face tt7 Followup: tt7 - With: Emergency Department - When: As needed - Reason: Followup: tt7 - With: Private Physician - When: 1 - 2 days - Reason: Recheck today's complaints, Re-evaluation by your physician Discharge Instructions: - Discharge Summary Sheet tt7 - Skin Abscess, Paoh-ol-Wlvn tt7 - Incision and Drainage, Care After tt7 Forms: - Medication Reconciliation Form tt7 - Antibiotic Education tt7 - Prescription Opioid Use tt7 - Patient Portal Instructions tt7 - Leadership Thank You Letter tt7 Prescriptions: - Clindamycin HCl 150 mg Oral capsule - take 3 capsule ORAL route every 8 hours for 7 days; 63 capsule; Refills: 0, tt7 Product Selection Permitted Signatures: Dispatcher [employer] EDMS Amber Flynn RN RN al5 CONSUELO CULLEN RN RN dd2 Sangeetha Purcell RN RN kb4 Rg Salazar, DO tt7 Corrections: (The following items were deleted from the chart) 08/31 21:19 21:19 Maxillofacial W/Cont+CT.RAD.BRZ ordered. EDMD EDMS 23:15 23:12 . tt7 tt7 23:57 23:16 Constitutional: vital signs reviewed, well appearing. Head/Face: normocephalic, tt7 atraumatic, moderate amount of swelling to the right nasolabial fold with tenderness to palpation, mild amount of infraorbital tenderness and swelling on the right side. tt7 23:57 23:22 Head/Face: normocephalic, atraumatic. tt7 tt7
--- NOTE | 2025-08-31 23:55 | ER ---
Nurse's Notes [facility] Name: Andrea Callejas III Age: 45 yrs Sex: Male : 1980 Arrival Date: 08/31/2025 Time: 20:40 Bed 2 Private MD: Diagnosis: Cutaneous abscess of face Presentation: 08/31 21:15 Chief complaint: Patient states: PAIN AND SWELLING NASAL BRIDGE, RT EYE AND RT JAW PAIN dd2 X 4 DAYS. WENT TO [place], RECEIVED ANTIBIOTICS X 2 DAYS AGO. PAIN WORSE AND SWELLING INCREASED. Coronavirus screen: At this time, the client does not indicate any symptoms associated with coronavirus-19. Ebola Screen: No symptoms or risks identified at this time. Mechanism of Injury: No Mechanism of Injury. The patient denies any loss of vision. Initial Sepsis Screen: Does the patient meet any 2 criteria? No. Patient's initial sepsis screen is negative. Does the patient have a suspected source of infection? No. Patient's initial sepsis screen is negative. Risk Assessment: Do you want to hurt yourself or someone else? Patient reports no desire to harm self or others. Onset of symptoms was August 27, 2025. 21:15 Method Of Arrival: Ambulatory dd2 21:15 Acuity: DEVONTE 3 dd2 Triage Assessment: 21:18 General: Appears in no apparent distress. uncomfortable, Behavior is calm, cooperative, dd2 appropriate for age. Pain: Complains of pain in right eye, bridge of nose and apex of the nose, RT JAW. EENT: Nares EDEMA. RT FACIAL EDEMA. Historical: - Allergies: 21:18 No Known Allergies; dd2 - Home Meds: 21:18 Lisinopril Oral [Active]; dd2 - PMHx: 21:18 Hypertensive disorder; dd2 - PSHx: 21:18 None; dd2 - Immunization history:: Adult Immunizations up to date. - Infectious Disease History:: Denies. - Social history:: Smoking status: Patient/guardian denies using tobacco. Screenin:15 [facility] ED Fall Risk Assessment (Adult) History of falling in the last 3 months, al5 including since admission No falls in past 3 months (0 pts) Confusion or Disorientation No (0 pts) Intoxicated or Sedated No (0 pts) Impaired Gait No (0 pts) Mobility Assist Device Used No (0 pt) Altered Elimination No (0 pt) Score/Fall Risk Level 0 - 2 = Low Risk Oriented to surroundings, Maintained a safe environment, Hourly rounding (assess needs \T\ fall precautionary measures) done. Abuse screen: Denies threats or abuse. Denies injuries from another. Nutritional screening: No deficits noted. Tuberculosis screening: No symptoms or risk factors identified. Assessment: 22:16 General: Appears in no apparent distress. uncomfortable, Behavior is calm, cooperative. al5 Pain: Complains of pain in right eye, right cheek and nose Pain currently is 10 out of 10 on a pain scale. Neuro: Level of Consciousness is awake, alert, obeys commands, Oriented to person, place, time, situation. Cardiovascular: Capillary refill < 3 seconds Patient's skin is warm and dry. Respiratory: Airway is patent Respiratory effort is even, unlabored, Respiratory pattern is regular, symmetrical. GI: No signs and/or symptoms were reported involving the gastrointestinal system. : No signs and/or symptoms were reported regarding the genitourinary system. EENT: Eyes WNL. Sclera/Cornea are clear in outer aspect of conjuctiva of right eye, iris of right eye, inner aspect of conjuctiva of right eye, outer aspect of conjuctiva of left eye, iris of left eye and inner aspect of conjunctiva of left eye Nares bilaterally swelling. Derm: Skin is intact, is healthy with good turgor, Skin is pink, warm \T\ dry. normal. Musculoskeletal: Circulation, motion, and sensation intact. Range of motion: intact in all extremities. 22:16 Reassessment: assumed care of patient at this time. al5 22:37 Reassessment: Patient appears in no apparent distress at this time. Patient and/or kb4 family updated on plan of care and expected duration. Pain level reassessed. Patient is alert, oriented x 3, equal unlabored respirations, skin warm/dry/pink. 23:19 Reassessment: Patient and/or family updated on plan of care and expected duration. Pain kb4 level reassessed. Patient is alert, oriented x 3, equal unlabored respirations, skin warm/dry/pink. Vital Signs: 21:15 BP 156 / 110; Pulse 102; Resp 18; Temp 98.2; Pulse Ox 100% on R/A; Weight 122.47 kg; dd2 Height 6 ft. 0 in. ; Pain 10/; 22:38 BP 145 / 105; Pulse 99; Resp 18; Pulse Ox 100% on R/A; kb4 23:19 BP 147 / 95; Pulse 95; Resp 18; Pulse Ox 100% on R/A; kb4 09/01 00:16 BP 142 / 103; Pulse 93; Resp 18; Pulse Ox 98% on R/A; kb4 08/31 21:15 Body Mass Index 36.62 (122.47 kg, 182.88 cm) dd2 08/31 21:15 Pain Scale: Adult dd2 ED Course: 08/31 20:44 Patient arrived in ED. sj2 21:18 Rg Salazar DO is Attending Physician. tt7 21:18 Triage completed. dd2 21:18 Arm band placed on right wrist. dd2 22:09 Tami Beverly, VANESA is Primary Nurse. kd3 22:15 Patient has correct armband on for positive identification. Bed in low position. Call al5 light in reach. Side rails up X 1. Provided Education on: plan of care. 22:15 No provider procedures requiring assistance completed. Inserted saline lock: 20 gauge al5 in right antecubital area, using aseptic technique. Blood collected. Flushed with 10 mL NS. 22:34 CT Maxillofacial W/cont In Process Unspecified. EDMS 09/01 00:14 IV discontinued, intact, bleeding controlled, No redness/swelling at site. Pressure al5 dressing applied. Administered Medications: 08/31 00:41 Drug: Lidocaine-Epinephrine Infiltration -2 % (1:100,000) 10 ml Infiltration once; to al5 bedside {Note: given by provider.} Route: Infiltration; 09/01 00:12 Follow up: Response: No adverse reaction al5 08/31 22:17 Drug: HYDROmorphone IVP 0.5 mg IVP once Route: IVP; Site: right antecubital; kb4 22:39 Follow up: Response: No adverse reaction kb4 22:17 Drug: Ondansetron IVP 4 mg IVP once; over 2 minutes Route: IVP; Site: right antecubital;kb4 22:39 Follow up: Response: No adverse reaction kb4 22:39 Drug: Clindamycin IVPB 600 mg IVPB once over 30 mins; (mix in 50 mL) Route: IVPB; kb4 Infused Over: 30 mins; Site: right antecubital; 09/01 00:13 Follow up: Response: No adverse reaction; IV Status: Completed infusion; IV Intake: [id number] 08/31 23:40 Drug: HYDROmorphone IVP 0.5 mg IVP once Route: IVP; Site: right antecubital; al5 09/01 00:12 Follow up: Response: No adverse reaction; Pain is decreased al5 Medication: 08/31 22:16 VIS not applicable for this client. al5 Intake: 09/01 00:13 IV: 50ml; Total: 50ml. al5 Outcome: 08/31 23:54 Discharge ordered by . tt7 09/01 00:14 Discharged to home ambulatory, with significant other, al5 Condition: stable Discharge instructions given to patient, Instructed on discharge instructions, follow up and referral plans. medication usage, Demonstrated understanding of instructions, follow-up care, medications, Prescriptions given X 1, 00:15 Patient left the ED. al5 Signatures: Dispatcher [employer] EDMS Tami Beverly RN RN kd3 Amber Flynn RN RN al5 CONSUELO CULLEN RN RN dd2 Sandip Huizar2 Sangeetha Purcell RN RN kb4 Rg Salazar DO DO tt7 Corrections: (The following items were deleted from the chart) 08/31 23:40 23:40 HYDROmorphone IVP 0.5 mg IVP in left forearm kb4 kb4 09/01 00:13 08/31 00:41 Lidocaine-Epinephrine Infiltration -2 % (1:100,000) 10 ml Infiltration al5 al5 09/01 00:14 08/31 23:40 HYDROmorphone IVP 0.5 mg IVP in right forearm kb4 al5
[2025-09-01 01:36] VITALS: TEMP 98.2; O2SAT 100
[2025-09-01 01:38] VITALS: BP 147/95
== END 2025-09-01 00:15 | disposition home or self-care (01) ==
LOC: ER 20:40
PROC: 0H91XZZ Drainage of Face Skin, External Approach (ICD-10-PCS; principal; 2025-09-01)
DX: L02.01 Cutaneous abscess of face (principal)
CPT/HCPCS: 96365; 85025; 80048; 36415; 82565; 70487; 96375; 99284; 96366; 10060; Q9967; J1171 ×2; J2405